=== PATIENT | male | born 1950 | race Caucasian/White ===

== ENCOUNTER 2017-06-03 09:29 | Inpatient (IN) | payer MEDICARE ==
[~2017-06-03] VITALS: Ht 175.3 cm; Wt 93.4 kg
[~2017-06-03 09:29] MED LIST: ALPR0.5T99 PO; CELE20TA PO; COZA100T PO; ENOX30P SQ; HYDR-2768 PO; HYDR10TA16 PO; LAMO25TA PO; MOME17I; PRAV40TA2 PO; TEMA7.5C9 PO
[2017-06-03 09:37] VITALS: BP 103/64; PULSE 79; RESP 19; TEMP 98; O2SAT 95
[2017-06-03] MEDS ORDERED: LEXA20TA PO (09:50)
--- NOTE | 2017-06-03 10:05 | PD ---
HPI Chief Complaint: Psychiatric Symptoms Time Seen by Provider: 10:03 Travel History International Travel<30 days: No Contact w/Intl Traveler<30days: No Traveled to known affect area: No History of Present Illness HPI 66-year-old male with history of bipolar disorder, presents to the ER brought in by EMS because he states that he was having an anxiety attack from increased amounts of stress. He states that he has been very hyperactive in the last few days and just cannot get himself to calm down. He apparently was fairly agitated on scene and had required several doses of Ativan in order to calm down. Currently in the ER, he is awake and aware of his surroundings, more calm and able to speak in complete sentences. He denies any homicidal or suicidal ideation. He has been Gonzalez acted for psychosis by EMS. He denies any ingestions or illicit drug use. Modifying Factors: None Associated Signs & Symptoms: Anxiety attack Risk Factors: Bipolar PFSH Past Medical History Bipolar Disorder: Yes Cancer: No Cardiovascular Problems: No Diabetes: Yes Patient Takes Glucophage: Yes Diminished Hearing: No Endocrine: No Genitourinary: No Hepatitis: No Hiatal Hernia: No Hypertension: Yes Immune Disorder: No Musculoskeletal: Yes Neurologic: No Psychiatric: Yes (BIPOLAR) Reproductive: No Respiratory: No Immunizations Current: Yes (FLU SHOT PNEUMONIA SHOT-2007) Thyroid Disease: No Past Surgical History Joint Replacement: Yes (RIGHT SHOULDER) Oral Surgery: Yes (PARTIAL PALET REMOVED) Pacemaker: No Other Surgery: Yes (CYST REMOVED FROM BACK OF NECK) Social History Alcohol Use: Yes (1/MONTH) Tobacco Use: No Substance Use: No Allergies-Medications (Allergen,Severity, Reaction): Coded Allergies: [place] (Verified Allergy, Severe, 06/03/17) Cultivated Oat Pollen (Verified Allergy, Intermediate, 02/14/13) Reported Meds & Prescriptions Reported Meds & Active Scripts Active Reported Lexapro (Escitalopram Oxalate) 20 Mg Tab 40 Mg PO DAILY Review of Systems Except as stated in HPI: all other systems reviewed are Neg Physical Exam Narrative GENERAL: Well-developed elderly white male patient currently in mild distress. Awake and oriented 3.] SKIN: Focused skin assessment warm/dry. HEAD: Atraumatic. Normocephalic. EYES: Pupils equal and round. No scleral icterus. No injection or drainage. ENT: No nasal bleeding or discharge. Mucous membranes pink and moist. NECK: Trachea midline. No JVD. CARDIOVASCULAR: Regular rate and rhythm. No murmur appreciated. RESPIRATORY: No accessory muscle use. Clear to auscultation. Breath sounds equal bilaterally. GASTROINTESTINAL: Abdomen soft, non-tender, nondistended. Hepatic and splenic margins not palpable. MUSCULOSKELETAL: No obvious deformities. No clubbing. No cyanosis. No edema. NEUROLOGICAL: Awake and alert. No obvious cranial nerve deficits. Motor grossly within normal limits. Normal speech. PSYCHIATRIC: Appropriate mood and affect; insight and judgment normal. Data Data Last Documented VS Vital Signs Date Time Temp Pulse Resp B/P Pulse Ox O2 Delivery O2 Flow Rate FiO2 06/03/17 09:37 98.0 79 19 103/64 95 Orders Complete Blood Count With Diff (06/03/17 09:48) Comprehensive Metabolic Panel (06/03/17 09:48) Psych Screen (06/03/17 09:48) Drug Screen, Random Urine (06/03/17 09:48) Alcohol (Ethanol) (06/03/17 09:48) Labs Laboratory Tests Test 06/03/17 10:00 White Blood Count 7.4 TH/MM3 Red Blood Count 5.50 MIL/MM3 Hemoglobin 15.7 GM/DL Hematocrit 46.4 % Mean Corpuscular Volume 84.4 FL Mean Corpuscular Hemoglobin 28.6 PG Mean Corpuscular Hemoglobin 33.9 % Concent Red Cell Distribution Width 13.5 % Platelet Count 229 TH/MM3 Mean Platelet Volume 8.0 FL Neutrophils (%) (Auto) 71.6 % Lymphocytes (%) (Auto) 20.3 % Monocytes (%) (Auto) 6.8 % Eosinophils (%) (Auto) 0.8 % Basophils (%) (Auto) 0.5 % Neutrophils # (Auto) 5.3 TH/MM3 Lymphocytes # (Auto) 1.5 TH/MM3 Monocytes # (Auto) 0.5 TH/MM3 Eosinophils # (Auto) 0.1 TH/MM3 Basophils # (Auto) 0.0 TH/MM3 CBC Comment DIFF FINAL Differential Comment Sodium Level 139 MEQ/L Potassium Level 3.6 MEQ/L Chloride Level 105 MEQ/L Carbon Dioxide Level 18.2 MEQ/L Anion Gap 16 MEQ/L Blood Urea Nitrogen 28 MG/DL Creatinine 1.58 MG/DL Estimat Glomerular Filtration 44 ML/MIN Rate Random Glucose 129 MG/DL Calcium Level 9.6 MG/DL Total Bilirubin 0.6 MG/DL Aspartate Amino Transf 30 U/L (AST/SGOT) Alanine Aminotransferase 46 U/L (ALT/SGPT) Alkaline Phosphatase 47 U/L Total Protein 7.6 GM/DL Albumin 3.9 GM/DL Ethyl Alcohol Level LESS THAN 3 MG/DL MDM Medical Decision Making Medical Screen Exam Complete: Yes Emergency Medical Condition: Yes Medical Record Reviewed: Yes Differential Diagnosis Psychosis/Gonzalez act/medical clearance Narrative Course Lab work shows elevated BUN and creatinine but vital signs are otherwise stable. At this point, I do not think that this is an acute issue and is not likely to be causing patient's psychosis currently. Patient will be medically cleared for psychiatric evaluation. Diagnosis Primary Impression: Psychosis Disposition: 65 DISC TO PSYCH CARE FACILITY Condition: Stable Sukhdev London MD Jun 03, 2017 10:05
[2017-06-03 10:10] LABS: AUTOMATED NEUTROPHIL # 5.3 TH/MM3 (1.8-7.7); BASOPHIL % 0.5 % (0.0-2.0); EOSINOPHIL # 0.1 TH/MM3 (0-0.4); EOSINOPHIL % 0.8 % (0.0-4.0); HEMATOCRIT 46.4 % (39.0-51.0); HEMO FLAGS DIFF FINAL; LYMPH % 20.3 % (9.0-44.0); LYMPHOCYTE # 1.5 TH/MM3 (1.0-4.8); MEAN CELL VOLUME 84.4 FL (80.0-100.0); MEAN CORPUSCULAR HEMOGLOBIN 28.6 PG (27.0-34.0); MEAN CORPUSCULAR HGB CONC 33.9 % (32.0-36.0); MONO % 6.8 % (0.0-8.0); NEUT % 71.6 % (16.0-70.0); PLATELET COUNT 229 TH/MM3 (150-450); RED CELL DISTRIBUTION WIDTH 13.5 % (11.6-17.2); WHITE BLOOD COUNT 7.4 TH/MM3 (4.0-11.0)
[2017-06-03 10:28] LABS: ANION GAP 16 MEQ/L (5-15); AST (GOT) 30 U/L (15-37); BICARBONATE 18.2 MEQ/L (21.0-32.0); BLOOD UREA NITROGEN 28 MG/DL (7-18); CHLORIDE 105 MEQ/L (98-107); GLOMERULAR FILTRATION RATE 44 ML/MIN (>89); POTASSIUM 3.6 MEQ/L (3.5-5.1); SODIUM (NA) 139 MEQ/L (136-145)
[2017-06-03 10:29] LABS: ALCOHOL LESS THAN 3 MG/DL (0-5); ALT (GPT) 46 U/L (12-78)
[2017-06-03 10:30] LABS: ALKALINE PHOSPHATASE 47 U/L (45-117); TOTAL BILIRUBIN ADULT 0.6 MG/DL (0.2-1.0)
[2017-06-03] MEDS ORDERED: SODIUM CHLOR 0.9% 1000 ML INJ 1,000 ML IV ONE (10:45)
[2017-06-03] MEDS ORDERED: VESI10TA PO (11:39)
[2017-06-03] MEDS ORDERED: SPIR25 PO (11:39)
[2017-06-03] MEDS ORDERED: LOSA100T2 PO (11:39)
[2017-06-03] MEDS ORDERED: TAMS0.4C4 PO (11:39)
[2017-06-03] MEDS ORDERED: PRAV40TA2 PO (11:39)
[2017-06-03] MEDS ORDERED: SONA10CA5 PO (11:39)
[2017-06-03] MEDS ORDERED: DIAZ5TAB PO (11:39)
[2017-06-03] MEDS ORDERED: ESCI10TA PO (11:39)
[2017-06-03] MEDS ORDERED: DULA10IN SQ (11:39)
[2017-06-03] MEDS ORDERED: AMBI10TA PO (11:39)
[2017-06-03 12:30] VITALS: BP 106/66; PULSE 57; RESP 15; O2SAT 98
[2017-06-03 16:40] VITALS: BP 123/73; PULSE 77; RESP 18; TEMP 97.5; O2SAT 97
[2017-06-03 22:20] VITALS: BP 121/69; PULSE 64; RESP 16
[2017-06-04 05:55] VITALS: BP 159/80; PULSE 71; RESP 18
[2017-06-04 10:00] VITALS: BP 119/70; PULSE 97; RESP 18
--- NOTE | 2017-06-04 10:00 | PD ---
History of Present Illness Chief Complaint: Psychiatric Symptoms Time Seen by Provider: 09:20 Travel History International Travel<30 Days: No Contact w/Intl Traveler<30days: No Known affected area: No Legal Status Legal Status: Gonzalez Act Gonzalez Act Signed By: Mert Martinez History of Present Illness: History of Present Illness HPI 66-year-old male with history of bipolar disorder and anxiety who presents to the ER brought in by EMS under a Gonzalez Act. The BA alleges that the patient made several suicdal statements and that he was combative during a "psychotic episode". EMS were called to the patient's home by his mother after " he started to mumble and flail around on the floor and started to hit his head" . Earlier in the day he had seen his psychologist , Dr. Stanford who had recommended that the patient see another psychiatrist instead of seeing Dr. Anderson but failed to give him a referral. He required 6 mg of Ativan en route to hospital secondary to his agitated state. He reported to ED provider that he has been feeling "very hyperactive in the last few days and just cannot get himself to calm down.". Patient was monitored in J pod and he presented no agitation. EMR is reviewed. One previous contact with [facility] [place] department in 2009 when he presented to the ED with complaints of anxiety. Patient is seen with nurse Maria Luisa. He is awake, alert and oriented. Flat affect. Speech is delayed. When he does answer he is tangential with difficulty focusing and concentration. He reports that he is having trouble with his thoughts " too many thoughts and off track" . He denies hallucinations. Denies suicidal or homicidal ideation. Mood is depressed. Reports impaired sleep with current medications which include Sonata and Ambien . 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 Telephone call to his mother, Carmen Meyer at [phone]. Mother reports that as far as she is aware he has been medication compliant and did not present any concerns regarding the patient. . PFSH Past Medical History Bipolar Disorder: Yes Cancer: No Cardiovascular Problems: No Diabetes: Yes Patient Takes Glucophage: Yes Diminished Hearing: No Endocrine: No Genitourinary: No Hepatitis: No Hiatal Hernia: No Hypertension: Yes Immune Disorder: No Musculoskeletal: Yes Neurologic: No Psychiatric: Yes (BIPOLAR) Reproductive: No Respiratory: No Immunizations Current: Yes (FLU SHOT PNEUMONIA SHOT-2008) Thyroid Disease: No Past Surgical History Joint Replacement: Yes (RIGHT SHOULDER) Oral Surgery: Yes (PARTIAL PALET REMOVED) Pacemaker: No Other Surgery: Yes (CYST REMOVED FROM BACK OF NECK) Psychiatric History Psychiatric History Hx Psychiatric Treatment: PATIENT OF DR. TIPTON x 1 year[address] Had previously seen Dr. Weeks. Has been on Niarada in the past. PATIENT OF DR. LUNDBERG , PSYCHOLOGIST History of Inpatient Treatment: Yes (One hosp in [place] in 1992. Has a another reported hosp but patietn unable to provide other information. ) Guns or firearms in home: No Social History Single , never . Lives with his mother. Born [place]. 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 Hx Alcohol Use: Yes (1/MONTH) Hx Tobacco Use: No Hx Substance Use: No Hx of Substance Use Treatment: No Family Psychiatric History Negative Allergies-Medications (Allergen,Severity, Reaction): Coded Allergies: [place] (Verified Allergy, Severe, 06/03/17) Cultivated Oat Pollen (Verified Allergy, Intermediate, 02/14/13) Reported Meds & Prescriptions Reported Meds & Active Scripts Active Reported Ambien (Zolpidem Tartrate) 10 Mg Tab 10 Mg PO HS PRN Sonata (Zaleplon) 10 Mg Cap 10 Mg PO HS PRN Vesicare (Solifenacin) 10 Mg Tab 10 Mg PO HS Trulicity Inj (Dulaglutide Inj) 0.75 Mg/0.5 Ml Pen 0.75 Mg SQ Q7D Tamsulosin (Tamsulosin HCl) 0.4 Mg Cap 0.4 Mg PO HS Aldactone (Spironolactone) 25 Mg Tab 25 Mg PO DAILY Pravastatin 40 Mg Tab 40 Mg PO HS PRN Losartan-Hydrochlorothiazide 100-25 Mg Tab 1 Tab PO DAILY Escitalopram (Escitalopram Oxalate) 10 Mg Tab 10 Mg PO DAILY Diazepam 5 Mg Tab 5 Mg PO BID PRN Lexapro (Escitalopram Oxalate) 20 Mg Tab 40 Mg PO DAILY Review of Systems Except as stated in HPI: all other systems reviewed are Neg Exam Alert: Yes [place]: Person (ox4) Mood: Depressed Affect: Blunted Speech: Clear, Tangential (Delayed repsonses) Eye Contact: Fixed Memory Intact: Comment (Not tested) Hallucinations: Other (deneis any) Delusions: No Suicidal: Ideation (deneis any) Homicidal: Ideation (deneis any) Insight/Judgement Fair. Not impaired MDM Medical Decision Making Medical Record Reviewed: Yes Assessment/Plan HPI 66-year-old male with history of bipolar disorder and anxiety who presents to the ER brought in by EMS under a Gonzalez Act. The BA alleges that the patient made several suicdal statements and that he was combative during a "psychotic episode". As per report he was hitting himself and flailing on the floor when EMS was called. The patient required 6 mg of Ativan to control his agitation. This morning the patient presents as depressed with blunted affect, delayed responses, difficulty organizing his thoughts, impaired sleep, and reporting inability to function at work. Patient is accepting a voluntary hospitalization for further observation, adjustment of medications and stabilization of mood. Orders Sodium Chlor 0.9% 1000 Ml Inj (Ns 1000 M (06/03/17 10:45) Diet Regular Basic (06/04/17 Breakfast) Results Vital Signs Date Time Temp Pulse Resp B/P Pulse Ox O2 Delivery O2 Flow Rate FiO2 06/04/17 05:55 71 18 159/80 06/03/17 22:20 64 16 121/69 06/03/17 16:40 97.5 77 18 123/73 97 Room Air 06/03/17 12:30 57 15 106/66 98 Room Air Laboratory Tests Test 06/03/17 06/03/17 10:00 16:50 White Blood Count 7.4 Red Blood Count 5.50 Hemoglobin 15.7 Hematocrit 46.4 Mean Corpuscular Volume 84.4 Mean Corpuscular Hemoglobin 28.6 Mean Corpuscular Hemoglobin 33.9 Concent Red Cell Distribution Width 13.5 Platelet Count 229 Mean Platelet Volume 8.0 Neutrophils (%) (Auto) 71.6 Lymphocytes (%) (Auto) 20.3 Monocytes (%) (Auto) 6.8 Eosinophils (%) (Auto) 0.8 Basophils (%) (Auto) 0.5 Neutrophils # (Auto) 5.3 Lymphocytes # (Auto) 1.5 Monocytes # (Auto) 0.5 Eosinophils # (Auto) 0.1 Basophils # (Auto) 0.0 CBC Comment DIFF FINAL Differential Comment Sodium Level 139 Potassium Level 3.6 Chloride Level 105 Carbon Dioxide Level 18.2 Anion Gap 16 Blood Urea Nitrogen 28 Creatinine 1.58 Estimat Glomerular Filtration 44 Rate Random Glucose 129 Calcium Level 9.6 Total Bilirubin 0.6 Aspartate Amino Transf 30 (AST/SGOT) Alanine Aminotransferase 46 (ALT/SGPT) Alkaline Phosphatase 47 Total Protein 7.6 Albumin 3.9 Ethyl Alcohol Level LESS THAN 3 Urine Opiates Screen NEG Urine Barbiturates Screen NEG Urine Amphetamines Screen NEG Urine Benzodiazepines Screen POS Urine Cocaine Screen NEG Urine Cannabinoids Screen NEG Diagnosis Primary Impression: Bipolar disorder Admitting Information Admitting Physician Requests: Admit Disposition: 65 DISC TO PSYCH CARE FACILITY Condition: Stable Problem Qualifiers Primary Impression: Bipolar disorder Qualified Code: F31.32 - Bipolar affective disorder, currently depressed, moderate Kathryn Cortez Jun 04, 2017 10:00
[2017-06-04] MEDS ORDERED: ACETAMINOPHEN 325 MG TAB PO PRN (11:00)
[2017-06-04] MEDS ORDERED: NON-FORMULARY DRUG (Dulaglutide Inj (Trulicity Inj) 0.75 MG) SQ SCH (11:00)
[2017-06-04] MEDS ORDERED: ALUMINUM/MAGNESIUM/SIMETH 30 ML CUP PO PRN (11:00)
[2017-06-04] MEDS ORDERED: PRAVASTATIN SOD 40 MG TAB PO PRN (11:00)
[2017-06-04] MEDS ORDERED: MAGNESIUM HYDROXIDE SUSP 30 ML CUP PO PRN (11:00)
[2017-06-04] MEDS ORDERED: NON-FORMULARY DRUG (Losartan-Hydrochlorothiazide 1 TAB) PO SCH (11:00)
[2017-06-04] MEDS: SPIRONOLACTONE 25 MG TAB PO SCH (14:30)
[2017-06-04] MEDS: LOSARTAN 50 MG TAB PO SCH (14:30)
[2017-06-04] MEDS: HYDROCHLOROTHIAZIDE 25 MG TAB PO SCH (14:31)
[2017-06-04 17:33] VITALS: BP 141/87; PULSE 80; RESP 18; TEMP 97.9
[2017-06-04] MEDS ORDERED: NON-FORMULARY DRUG (Solifenacin (Vesicare) 10 MG) PO SCH (21:00)
[2017-06-04] MEDS: TAMSULOSIN HCL 0.4 MG CAP PO SCH (21:23)
[2017-06-04] MEDS: TOLTERODINE TARTRATE 4 MG CAP LA PO SCH (21:23)
[2017-06-05 06:19] VITALS: BP 130/76; PULSE 82; RESP 18; TEMP 97.1; O2SAT 97
[2017-06-05] MEDS: HYDROCHLOROTHIAZIDE 25 MG TAB PO SCH (08:25)
[2017-06-05] MEDS: SPIRONOLACTONE 25 MG TAB PO SCH (08:26)
[2017-06-05] MEDS: LOSARTAN 50 MG TAB PO SCH (08:26)
[2017-06-05 12:18] LABS: ANION GAP 8 MEQ/L (5-15); BLOOD UREA NITROGEN 22 MG/DL (7-18); CHLORIDE 102 MEQ/L (98-107); GLOMERULAR FILTRATION RATE 76 ML/MIN (>89); POTASSIUM 3.7 MEQ/L (3.5-5.1); SODIUM (NA) 138 MEQ/L (136-145)
[2017-06-05 12:22] LABS: HDL CHOLESTEROL 36.5 MG/DL (40.0-60.0); LDL CHOLESTEROL 80 MG/DL (0-99)
[2017-06-05] MEDS ORDERED: PT TRULICITY SQ SCH (15:00)
--- NOTE | 2017-06-05 15:03 | HHI.HP ---
Provisional Diagnosis Admission Date Jun 04, 2017 at 10:48 [place] I. Bipolar disorder, depressed episode, benzodiazepine dependence [place] II. Deferred [place] III. Diabetes mellitus II Certification of Person's Competence To Provide Express and Informed Consent I have personally examined Jorje Meyer , a person being served at [facility] on, Jun 05, 2017 14:44. Express and informed consent means consent voluntarily given in writing, by a competent person, after sufficient explanation and disclosure of the subject matter involved to enable the person to make a knowing and willful decision without any element of force, fraud, deceit, duress, or other form of constraint or coercion. This person is 18 years of age or older, is not now known to be incompetent to consent to treatment with a guardian advocate, and does not have a health care surrogate or proxy currently making medical treatment decisions. I have found this person to be one of the following: [X] Competent to provide express and informed consent, as defined above, for voluntary admission to this facility and is competent to provide express and informed consent for treatment. He/she has the consistent capacity to make well reasoned, willful, and knowing decisions concerning his or her medical or mental health treatment. The person fully and consistently understands the purpose of the admission for examination/placement and is fully capable of personally exercising all rights assured under [place] Incompetent to provide express and informed consent to voluntary admission, and this is incompetent to provide express and informed consent to treatment. The person must be transferred to involuntary status and a petition for a guardian advocate filed with the Circuit Court. [] Refusing to provide express and informed consent to voluntary admission but is competent to provide express and informed consent for treatment. The person must be discharged or transferred to involuntary status. Form shall be completed within 24 hours of a person's arrival at the receiving facility and filed in the clinical record of each person: 1. Admitted on a voluntary basis 2. Permitted to provide express and informed consent to his/her own treatment 3. Allowed to transfer from involuntary to voluntary status 4. Prior to permitting a person to consent to his or her own treatment after having been previously found incompetent to consent to treatment. History of Present Illness Capacity: Has Capacity HPI As per Ms. Kathryn Cortez documentation "66-year-old male with history of bipolar disorder and anxiety who presents to the ER brought in by EMS under a Gonzalez Act. The BA alleges that the patient made several suicidal statements and that he was combative during a "psychotic episode". EMS were called to the patient's home by his mother after " he started to mumble and flail around on the floor and started to hit his head" . Earlier in the day he had seen his psychologist , Dr. Stanford who had recommended that the patient see another psychiatrist instead of seeing Dr. Anderson but failed to give him a referral. He required 6 mg of Ativan en route to hospital secondary to his agitated state. He reported to ED provider that he has been feeling "very hyperactive in the last few days and just cannot get himself to calm down.". Patient was monitored in J pod and he presented no agitation. EMR is reviewed. [place] [facility] [place] 2009 when he presented to the ED with complaints of anxiety. Patient is seen with nurse Maria Luisa. He is awake, alert and oriented. Flat affect. Speech is delayed. When he does answer he is tangential with difficulty focusing and concentration. He reports that he is having trouble with his thoughts " too many thoughts and off track" . He denies hallucinations. Denies suicidal or homicidal ideation. Mood is depressed. Reports impaired sleep with current medications which include Sonata and Ambien . 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 Telephone call to his mother, Carmen Meyer at [phone]. 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 Motta, he also sees a psychologist for psychotherapy, he is on Lamictal 150 mg twice a day, Lexapro 10 mg, Sonata 10 mg, Ambien 5 mg, Valium 5 mg twice a day, medical history of diabetes mellitus type 2, who was brought to the hospital under Gonzalez act due to suicidal ideation and disorganized behavior. Patient is seen today for psychiatric evaluation in the 2600 unit with social services counselor Aurelia. Patient is calm and cooperative. Patient explains that he cannot fully understand the reason he in the hospital. Says that he doesn't usually acts like this, but apparently he has been having some disputes and disagreement with his psychologist regarding his medication management by Dr. Julian. Patient says that he admits that he has been abusing benzodiazepines and he is willing to participate in a medication adjustment. The moment of this evaluation patient denies prominent depressive symptoms, he reports decreased sleep and energy, but denies anhedonia, denies hopelessness, denies helplessness, denies worthlessness, denies suicidal or homicidal ideation, denies visual and auditory hallucinations. She does not seem to have an insight about his episode of psychosis and aggressive behavior in the unit. At this moment he is oriented 3, no attention deficit, no fluctuation of consciousness. Patient denies the use of drugs and alcohol. Review of Systems Constitutional: DENIES: Diaphoretic episodes, Fatigue, Fever, Weight gain, Weight loss, Chills, Dizziness, Change in appetite, Night Sweats Endocrine: DENIES: Heat/cold intolerance, Polydipsia, Polyuria, Polyphagia Eyes: DENIES: Blurred vision, Diplopia, Eye inflammation, Eye pain, Vision loss , Photosensitivity, Double Vision Ears, nose, mouth, throat: DENIES: Tinnitus, Hearing loss, Vertigo, Nasal discharge, Oral lesions, Throat pain, Hoarseness, Ear Pain, Running Nose, Epistaxis, Sinus Pain, Toothache, Odynophagia Respiratory: DENIES: Apneas, Cough, Snoring, Wheezing, Hemoptysis, Sputum production, Shortness of breath Cardiovascular: DENIES: Chest pain, Palpitations, Syncope, Dyspnea on Exertion , PND, Lower Extremity Edema, Orthopnea, Claudication Gastrointestinal: DENIES: Abdominal pain, Black stools, Bloody stools, Constipation, Diarrhea, Nausea, Vomiting, Difficulty Swallowing, Anorexia Musculoskeletal: DENIES: Joint pain, Muscle aches, Stiffness, Joint Swelling, Back pain, Neck pain Integumentary: DENIES: Abnormal pigmentation, Nail changes, Pruritus, Rash Hematologic/lymphatic: DENIES: Bruising, Lymphadenopathy Immunologic/allergic: DENIES: Eczema, Urticaria Neurologic: DENIES: Abnormal gait, Headache, Localized weakness, Paresthesias, Seizures, Speech Problems, Tremor, Poor Balance Psychiatric: DENIES: Anxiety, Confusion, Mood changes, Depression, Hallucinations, Agitation, Suicidal Ideation, Homicidal Ideation, Delusions Substance Abuse History Drugs/Alcohol past 12 months Patient denies the use of illicit drugs and alcohol Past Family Social History Coded Allergies: [place] (Verified Allergy, Severe, 06/03/17) Cultivated Oat Pollen (Verified Allergy, Intermediate, 02/14/13) Reported Medications Zolpidem (Ambien)10 Mg Tab10 Mg PO HS PRN (INSOMNIA) Ref 0 06/03/17 Zaleplon (Sonata)10 Mg Cap10 Mg PO HS PRN (INSOMNIA) Ref 0 06/03/17 Solifenacin (Vesicare)10 Mg Tab10 Mg PO HS #30 TAB Ref 0 06/03/17 Dulaglutide Inj (Trulicity Inj)0.75 Mg/0.5 Ml Pen0.75 Mg SQ Q7D #4 PEN Ref 0 06/03/17 Tamsulosin 0.4 Mg Cap0.4 Mg PO HS #30 CAP Ref 0 06/03/17 Spironolactone (Aldactone)25 Mg Tab25 Mg PO DAILY #30 TAB Ref 0 06/03/17 Pravastatin 40 Mg Tab40 Mg PO HS PRN (Cholesterol Management) #30 TAB Ref 0 06/03/17 Losartan-Hydrochlorothiazide 100-25 Mg Tab1 Tab PO DAILY #30 TAB Ref 0 06/03/17 Escitalopram 10 Mg Tab10 Mg PO DAILY #30 TAB Ref 0 06/03/17 Diazepam 5 Mg Tab5 Mg PO BID PRN (ANXIETY) Ref 0 06/03/17 Escitalopram (Lexapro)20 Mg Tab40 Mg PO DAILY #30 TAB Ref 0 06/03/17 Discontinued Reported Medications Enoxaparin Sodium (Lovenox)30 Mg/0.3 Ml Inj30 Mg SQ DAILY #6 UNGRADUATED PREFILLED SYRINGE 02/16/13 Hydrocodone-Acetaminophen (Lortab 10/500)10 Mg/500 Mg Tab1-2 Tab PO Q6HPRN #90 FOR PAIN 02/16/13 Lamotrigine 25 Mg Ajg100 Mg PO HS 02/02/13 Pravastatin Sodium 40 Mg Tab40 Mg PO HS 02/02/13 Hydrochlorothiazide (Hctz)25 Mg Tab25 Mg PO DAILY 02/02/13 Losartan Potassium (Cozaar)100 Mg [id number] Mg PO DAILY 02/02/13 Citalopram Hydrobromide (Celexa)20 Mg Tab40 Mg PO DAILY 03/03/10 Mometasone Furoate (Nasonex)17 Gm Spray1 Spr NA DAILYPRN Ref 0 03/03/10 Temazepam (Restoril)7.5 Mg Cap30 Mg PO HSPRN Ref 0 UNKNOWN DOSE 03/03/10 Alprazolam (Xanax)0.5 Mg Tab0.5 Mg PO BID Ref 0 03/03/10 Current Medications Medications (Trade) Dose Ordered Sig/Jorge Route Start Time Stop Time Status Last Admin (Tylenol) 650 mg Q4H PRN PO 06/04/17 11:00 (Milk Of Magnesia Liq) 30 ml DAILY PRN PO 06/04/17 11:00 (Mag-Al Plus Susp Liq) 30 ml Q6H PRN PO 06/04/17 11:00 (Pravachol) 40 mg HS PRN PO 06/04/17 11:00 (Aldactone) 25 mg DAILY PO 06/04/17 12:30 06/05/17 08:26 (Flomax) 0.4 mg HS PO 06/04/17 21:00 06/04/17 21:23 Non-Formulary Medication 0.75 mg Q7D SQ 06/04/17 11:00 UNV (Detrol La) 4 mg HS PO 06/04/17 21:00 06/04/17 21:23 (Cozaar) 100 mg DAILY PO 06/04/17 13:00 06/05/17 08:26 (Hydrodiuril) 25 mg DAILY PO 06/04/17 13:00 06/05/17 08:25 Family History Patient denies family psychiatric history Social History Patient was born and raised in [place], he lives in [place] his mother , he is single, he works as a 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 Physical Exam No tremors, no EPS, no withdrawal, no stiffness, no psychomotor agitation or retardation, no gait disturbance Vital Signs Vital Signs Date Time Temp Pulse Resp B/P Pulse Ox O2 Delivery O2 Flow Rate FiO2 06/05/17 06:19 97.1 82 18 130/76 97 06/04/17 10:00 Room Air Lab Results Laboratory Tests Test 06/03/17 06/03/17 10:00 16:50 White Blood Count 7.4 Red Blood Count 5.50 Hemoglobin 15.7 Hematocrit 46.4 Mean Corpuscular Volume 84.4 Mean Corpuscular Hemoglobin 28.6 Mean Corpuscular Hemoglobin 33.9 Concent Red Cell Distribution Width 13.5 Platelet Count 229 Mean Platelet Volume 8.0 Neutrophils (%) (Auto) 71.6 Lymphocytes (%) (Auto) 20.3 Monocytes (%) (Auto) 6.8 Eosinophils (%) (Auto) 0.8 Basophils (%) (Auto) 0.5 Neutrophils # (Auto) 5.3 Lymphocytes # (Auto) 1.5 Monocytes # (Auto) 0.5 Eosinophils # (Auto) 0.1 Basophils # (Auto) 0.0 CBC Comment DIFF FINAL Differential Comment Sodium Level 139 Potassium Level 3.6 Chloride Level 105 Carbon Dioxide Level 18.2 Anion Gap 16 Blood Urea Nitrogen 28 Creatinine 1.58 Estimat Glomerular Filtration 44 Rate Random Glucose 129 Calcium Level 9.6 Total Bilirubin 0.6 Aspartate Amino Transf 30 (AST/SGOT) Alanine Aminotransferase 46 (ALT/SGPT) Alkaline Phosphatase 47 Total Protein 7.6 Albumin 3.9 Ethyl Alcohol Level LESS THAN 3 Urine Opiates Screen NEG Urine Barbiturates Screen NEG Urine Amphetamines Screen NEG Urine Benzodiazepines Screen POS Urine Cocaine Screen NEG Urine Cannabinoids Screen NEG Mental Status Examination Appearance man, age appearing, good hygiene, he is calm and cooperative Speech: Unremarkable Orientation: x3 Memory: Unremarkable Thought Process: Logical Thought Content: Unremarkable Language Fluent and spontaneous Fund of Knowledge Adequate for his level of education Hallucination Type: None Suicidal Ideation: No Previous Suicide Attempts: No Homicidal Ideation: No Insight: Good Judgment: WNL Affect: Good Mood: Appropriate Motor Activity: Normal gait Assessment & Plan Problem List: (1) Bipolar disorder Assessment & Plan: Psychiatric evaluation today the patient is calm, cooperative and pleasant. Does reports mild to moderate symptomatology of depression and anxiety in the context of poor medication management. Patient has been reportedly aggressive and acting psychotic in the last hours, especially in the ER, but at this moment is unclear the etiology of these described symptoms. Patient seems to be interested in reducing his benzodiazepine use. He does not seem to be withdrawing of benzodiazepines at the moment of this evaluation, no tremors, no anxiety, no autonomic instability reported. We will keep the patient for psychiatric admission in voluntary basis for observation of mood and behavior. We will restart Lamictal 100 mg twice a day, escitalopram 10 mg. We'll start clonazepam 0.5 mg 3 times a day for anxiety. Discontinue Ambien and Sonata. Collateral information from Dr. Motta is crucial in order to help with medication for stabilization. garbage worker intervention for psychosocial assessment, individual and group counseling , collateral information and to coordinate a safe discharge. Extensive support , motivation and psychoeducation provided. ICD Code: F31.9 Assessment & Plan Estimated LOS: days Problem Qualifiers (1) Bipolar disorder: Qualified Code: F31.32 - Bipolar affective disorder, currently depressed, moderate Lucian Palumbo MD Jun 05, 2017 15:03
[2017-06-05] MEDS: lamoTRIgine 100 MG TAB PO SCH ×2 (15:53→21:46)
[2017-06-05] MEDS: clonazePAM 0.5 MG TAB PO SCH ×2 (15:53→21:46)
[2017-06-05] MEDS: ESCITALOPRAM OXALATE 10 MG TAB PO SCH (15:53)
[2017-06-05 18:23] VITALS: BP 120/69; PULSE 89; RESP 18; TEMP 98.1; O2SAT 96
[2017-06-05] MEDS: TOLTERODINE TARTRATE 4 MG CAP LA PO SCH (21:45)
[2017-06-05] MEDS: TAMSULOSIN HCL 0.4 MG CAP PO SCH (21:46)
[2017-06-06] MEDS: clonazePAM 0.5 MG TAB PO SCH ×3 (05:22→21:44)
[2017-06-06 06:00] VITALS: BP 116/78; PULSE 76; RESP 16; TEMP 97.4; O2SAT 97
[2017-06-06] MEDS: LOSARTAN 50 MG TAB PO SCH (09:17)
[2017-06-06] MEDS: ESCITALOPRAM OXALATE 10 MG TAB PO SCH (09:17)
[2017-06-06] MEDS: SPIRONOLACTONE 25 MG TAB PO SCH (09:17)
[2017-06-06] MEDS: HYDROCHLOROTHIAZIDE 25 MG TAB PO SCH (09:17)
[2017-06-06] MEDS: lamoTRIgine 100 MG TAB PO SCH ×2 (09:18→21:44)
--- NOTE | 2017-06-06 12:12 | HHI.PYPN ---
Subjective Remarks Patient discussed with treatment team, patient seen and unit, chart reviewed, patient compliant medications. Patient showing some improved affect she is calm cooperative sitting in dayroom with good eye contact able to focus on me she is excited about possible placement still. For now continue treatment she denies suicidality voices or visions Review of Systems Except as stated in HPI: all other systems reviewed are Neg Objective Alert: Yes [place]: Person (ox4) Mood: Depressed Affect: Blunted Memory Intact: Comment (Not tested) Hallucinations: Other (deneis any) Delusions: No Delusion Type: Other (denies at this time) Suicidal: Ideation (deneis any) Homicidal: Ideation (deneis any) Insight/Judgment Poor Vitals/IOs Vital Signs Date Time Temp Pulse Resp B/P Pulse Ox O2 Delivery O2 Flow Rate FiO2 06/06/17 06:00 97.4 76 16 116/78 97 06/04/17 10:00 Room Air Intake and Output 06/05/17 06/05/17 06/06/17 08:00 16:00 00:00 Intake Total 240 ml Balance 240 ml Assessment & Plan Problem List: (1) Bipolar disorder ICD Code: F31.9 Assessment & Plan Estimated LOS: days patient mood is calming she is more appropriate focused, compliant medications. Excited about possible placement Justification for Cont. Inpt. If this time patient may decompensate if not placed at an appropriate level of care Discharge Planning To be determined Problem Qualifiers (1) Bipolar disorder: Qualified Code: F31.32 - Bipolar affective disorder, currently depressed, moderate Ben Powers MD Jun 06, 2017 12:12
--- NOTE | 2017-06-06 12:57 | PD.TTN ---
Present for Treatment Team Treatment Team Staff: Provider (Dr. Powers), Nurse (DES Padilla), Psych Therapist (IAN Andino), Occupational Therapist (MULU Menendez) Patient Problems 1. Discharge planning 2. Medication compliance 3. Knowledge deficit 4. Lack of coping skills Progress Toward Goals Provider Input: Patient is new on the unit and has some complaints about medication management. patient is cooperative with treatment and will continue his treatment voluntarily. Patient's complaints are his inability to sleep. Nurse Input: Patient has had no behavioral issues on the unit at the time, patient is cooperative with treatment and compliant with medications. Patient has good appetite. Psych Therapist Input: Patient has flat affect and needs constant reassurance with treatment. patient notes to be struggling with feelings of overwhelmingness and inability to cope with stress with taking care of his mother. Patient states that he has realistic goals and is willing to find new ways to cope upon discharge. Thu [place]agena Jun 06, 2017 12:57
--- NOTE | 2017-06-06 15:41 | HHI.PYPN ---
Subjective Remarks Patient discussed with treatment team, Patient seen in his room with DES Padilla. Patient states he is compliant with medications, as noted with the adjustments in the benzodiazepines that he is thinking clear is able to focus and concentrate on reading about going over sentences. Patient still remains depressed fairly flat affect. With the stimulus denies suicidality. For now continue treatment no change Review of Systems Except as stated in HPI: all other systems reviewed are Neg Objective Alert: Yes [place]: Person (ox4) Mood: Depressed Affect: Blunted Memory Intact: Comment (Not tested) Hallucinations: Other (deneis any) Delusions: No Delusion Type: Other (denies at this time) Suicidal: Ideation (deneis any) Homicidal: Ideation (deneis any) Insight/Judgment Poor Vitals/IOs Vital Signs Date Time Temp Pulse Resp B/P Pulse Ox O2 Delivery O2 Flow Rate FiO2 06/06/17 06:00 97.4 76 16 116/78 97 06/04/17 10:00 Room Air Intake and Output 06/05/17 06/05/17 06/06/17 08:00 16:00 00:00 Intake Total 240 ml Balance 240 ml Assessment & Plan Problem List: (1) Bipolar disorder ICD Code: F31.9 Assessment & Plan Estimated LOS: days patient remains depressed with a markedly decreased affect. Though he states he is feeling some difference with the adjustments in the benzodiazepines Justification for Cont. Inpt. At this time patient will decompensate if placed in the lower level of care Discharge Planning To be determined Problem Qualifiers (1) Bipolar disorder: Qualified Code: F31.32 - Bipolar affective disorder, currently depressed, moderate Ben Powers MD Jun 06, 2017 15:41
[2017-06-06 16:40] LABS: HEMOGLOBIN A1a 1.1 %; HEMOGLOBIN A1b 1.6 %; HEMOGLOBIN Ao 84.4 %; HEMOGLOBIN LA1C 2.2 %; HEMOGLOBIN P3 3.8 %
[2017-06-06 18:12] VITALS: BP 131/64; PULSE 77; RESP 16; TEMP 98; O2SAT 97
[2017-06-06] MEDS: TAMSULOSIN HCL 0.4 MG CAP PO SCH (21:44)
[2017-06-06] MEDS: TOLTERODINE TARTRATE 4 MG CAP LA PO SCH (21:45)
[2017-06-07 05:15] VITALS: BP 101/69; PULSE 63; RESP 16; TEMP 98.7; O2SAT 97
[2017-06-07] MEDS: clonazePAM 0.5 MG TAB PO SCH ×3 (05:22→22:07)
[2017-06-07] MEDS: HYDROCHLOROTHIAZIDE 25 MG TAB PO SCH (09:58)
[2017-06-07] MEDS: LOSARTAN 50 MG TAB PO SCH (09:58)
[2017-06-07] MEDS: SPIRONOLACTONE 25 MG TAB PO SCH (09:58)
[2017-06-07] MEDS: lamoTRIgine 100 MG TAB PO SCH ×2 (09:58→22:07)
[2017-06-07] MEDS: ESCITALOPRAM OXALATE 10 MG TAB PO SCH (09:58)
--- NOTE | 2017-06-07 11:57 | HHI.PYPN ---
Subjective Remarks Patient seen in his room with nurse Saira and medical student Arley, patient states she is feeling better, he is participating in activities and showing some slight increased focus. Though he still isolates at times. He denies suicidality denies voices. He continues to show some focus on his medications though is been compliant, showing no significant side effects from the transition to the Klonopin than the discontinuation of the Valium and the Xanax. We did talk about discharge. Patient states that he had a prior episode of hospitalization where his mother became quite upset because she was nonoccluded the discharge planning and transportation home. Reassured him that his mother will be part of the discharge planning and notification. For now continue treatment Review of Systems Except as stated in HPI: all other systems reviewed are Neg Objective Alert: Yes [place]: Person (ox4) Mood: Depressed Affect: Blunted Memory Intact: Comment (Not tested) Hallucinations: Other (deneis any) Delusions: No Delusion Type: Other (denies at this time) Suicidal: Ideation (deneis any) Homicidal: Ideation (deneis any) Insight/Judgment Poor Vitals/IOs Vital Signs Date Time Temp Pulse Resp B/P Pulse Ox O2 Delivery O2 Flow Rate FiO2 06/07/17 05:15 98.7 63 16 101/69 97 06/04/17 10:00 Room Air Assessment & Plan Problem List: (1) Bipolar disorder ICD Code: F31.9 Assessment & Plan Estimated LOS: days patient will continue somewhat depressed and blunted though there is slight softening. Now denies suicidality of voices. Is compliant with his medication Justification for Cont. Inpt. At this time patient may decompensate if not placed an appropriate level of care Discharge Planning To be determined Problem Qualifiers (1) Bipolar disorder: Qualified Code: F31.32 - Bipolar affective disorder, currently depressed, moderate Ben Powers MD Jun 07, 2017 11:57
[2017-06-07 15:13] VITALS: BP 105/67; PULSE 74; RESP 18; TEMP 98.3; O2SAT 96
[2017-06-07] MEDS: TAMSULOSIN HCL 0.4 MG CAP PO SCH (22:08)
[2017-06-07] MEDS: TOLTERODINE TARTRATE 4 MG CAP LA PO SCH (22:09)
[2017-06-08] MEDS: clonazePAM 0.5 MG TAB PO SCH ×3 (05:01→21:39)
[2017-06-08 05:06] VITALS: BP 106/66; PULSE 55; RESP 16; TEMP 97.4; O2SAT 97
[2017-06-08] MEDS: ESCITALOPRAM OXALATE 10 MG TAB PO SCH (09:00)
[2017-06-08] MEDS: lamoTRIgine 100 MG TAB PO SCH (09:00)
[2017-06-08] MEDS: HYDROCHLOROTHIAZIDE 25 MG TAB PO SCH (09:00)
[2017-06-08] MEDS: LOSARTAN 50 MG TAB PO SCH (09:00)
[2017-06-08] MEDS: SPIRONOLACTONE 25 MG TAB PO SCH (09:00)
--- NOTE | 2017-06-08 12:52 | HHI.PYPN ---
Subjective Remarks Patient seen in his room with nurse Aries and counselor antonio, chart reviewed. Patient states that he has been on Lamictal 150 mg twice a day and would like to have his medications adjusted. Will increase at bedtime Lamictal 2125 mg. Patient does have various other somatic complaints. He also stated they have been on metformin in the past. We will have hospitalist consult with us otherwise patient denies suicidality homicidality. Pierces mood is also stabilizing. We'll consider discharge by the end of the week Review of Systems Except as stated in HPI: all other systems reviewed are Neg Objective Alert: Yes [place]: Person (ox4) Mood: Depressed Affect: Blunted Memory Intact: Comment (Not tested) Hallucinations: Other (deneis any) Delusions: No Delusion Type: Other (denies at this time) Suicidal: Ideation (deneis any) Homicidal: Ideation (deneis any) Insight/Judgment Poor Vitals/IOs Vital Signs Date Time Temp Pulse Resp B/P Pulse Ox O2 Delivery O2 Flow Rate FiO2 06/08/17 05:06 97.4 55 16 106/66 97 06/04/17 10:00 Room Air Assessment & Plan Problem List: (1) Bipolar disorder ICD Code: F31.9 Assessment & Plan Estimated LOS: days patient mood is improving though his passivity and neediness continue. We'll have hospitalist consult with us. Will adjust Lamictal as mentioned above Justification for Cont. Inpt. At this time patient may decompensate if placed in a lower level of care Discharge Planning To be determined Problem Qualifiers (1) Bipolar disorder: Qualified Code: F31.32 - Bipolar affective disorder, currently depressed, moderate Ben Powers MD Jun 08, 2017 12:52
--- NOTE | 2017-06-08 16:29 | PD.CONS ---
HPI Service [facility] Consult Requested By Primary Care Physician Giovanny Cole M.D. 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 He was admitted last night via the emergency department with a diagnosis of bipolar disorder, depressed episode and benzodiazepine dependence. He was Gonzalez acted. Apparently the patient made several suicidal statements and was combative . His mother told 911 after she found him reportedly mumbling and flailing around the floor and started to hit his head. Today he is alert and oriented. He is calm and composed. He denies any specific complaints other than general concern about his general medical health. Review of Systems Other As detailed above, 10 systems reviewed and otherwise negative Past Family Social History Past Medical History Diabetes mellitus Hypertension Hyperlipidemia Prostate enlargement Fatty liver Proteinuria Elevated pancreatic enzymes Swollen ankles Past Surgical History Right shoulder replacement Reported Medications Reported Meds & Active Scripts Active Reported Ambien (Zolpidem Tartrate) 10 Mg Tab 10 Mg PO HS PRN Sonata (Zaleplon) 10 Mg Cap 10 Mg PO HS PRN Vesicare (Solifenacin) 10 Mg Tab 10 Mg PO HS Trulicity Inj (Dulaglutide Inj) 0.75 Mg/0.5 Ml Pen 0.75 Mg SQ Q7D Tamsulosin (Tamsulosin HCl) 0.4 Mg Cap 0.4 Mg PO HS Aldactone (Spironolactone) 25 Mg Tab 25 Mg PO DAILY Pravastatin 40 Mg Tab 40 Mg PO HS PRN Losartan-Hydrochlorothiazide 100-25 Mg Tab 1 Tab PO DAILY Escitalopram (Escitalopram Oxalate) 10 Mg Tab 10 Mg PO DAILY Diazepam 5 Mg Tab 5 Mg PO BID PRN Lexapro (Escitalopram Oxalate) 20 Mg Tab 40 Mg PO DAILY He also stated that he takes Glucophage, vitamin B 12 and vitamin D3 Allergies: Coded Allergies: lithium (Unverified Allergy, Severe, 06/07/17) grass pollen (Unverified Allergy, Intermediate, 06/07/17) Family History Reviewed but noncontributory Social History No smoking, no excessive alcohol, no illicit drug use, however he is a chronic user of benzodiazepines Physical Exam Vital Signs Vital Signs Date Time Temp Pulse Resp B/P Pulse Ox O2 Delivery O2 Flow Rate FiO2 06/08/17 05:06 97.4 55 16 106/66 97 Physical Exam GENERAL: This is a pleasant, overweight , well-developed patient, in no apparent distress. SKIN: No rashes, ecchymoses or lesions. Cool and dry. HEAD: Atraumatic. Normocephalic. No temporal or scalp tenderness. EYES: Pupils equal round and reactive. Extraocular motions intact. No scleral icterus. No injection or drainage. ENT: Nose without bleeding, purulent drainage or septal hematoma. Throat without erythema, tonsillar hypertrophy or exudate. Uvula midline. Airway patent. NECK: Trachea midline. No JVD or lymphadenopathy. Supple, nontender, no meningeal signs. CARDIOVASCULAR: Regular rate and rhythm without murmurs, gallops, or rubs. RESPIRATORY: Clear to auscultation. Breath sounds equal bilaterally. No wheezes , rales, or rhonchi. GASTROINTESTINAL: Abdomen soft, non-tender, nondistended. No hepato-splenomegaly , or palpable masses. No guarding. MUSCULOSKELETAL: Trace ankle swelling NEUROLOGICAL: Awake and alert. Normal speech. Result Diagram: 06/05/17 1112 A/P Assessment and Plan Assessment Psychiatric problem as detailed by psychiatry Metabolic acidosis on admission, etiology unclear, possibly renal Elevated creatinine on admission, improved subsequently Suspected chronic kidney disease, likely stage II Obesity History of diabetes, hypertension, hyperlipidemia, prostate enlargement, fatty liver, proteinuria, ankle swelling Management Continue home medications Accu-Cheks before meals and at bedtime Sliding-scale of insulin Discontinue Glucophage as his arrival creatinine was over 1.5 Psychiatric treatment per psychiatrist Thank you for allowing us to see this patient on consultation We will follow along with you during this hospitalization as needed discussed with patient Discussed with nurse Brisa Werner MD Jun 08, 2017 16:29
[2017-06-08] MEDS ORDERED: DEXTROSE 50% IN WATER 50 ML VIAL(D50) IV PRN (16:30)
[2017-06-08] MEDS ORDERED: GLUCAGON 1 MG/ML VIAL IM PRN (16:30)
[2017-06-08] MEDS ORDERED: GLUCAGON 1 MG/ML VIAL OTHER PRN (16:30)
[2017-06-08] MEDS: INSULIN ASPART SUPPLEMENTAL SCALE SQ SCH (21:00)
[2017-06-08] MEDS: lamoTRIgine 25 MG TAB PO SCH (21:38)
[2017-06-08] MEDS: TAMSULOSIN HCL 0.4 MG CAP PO SCH (21:39)
[2017-06-08] MEDS: TOLTERODINE TARTRATE 4 MG CAP LA PO SCH (21:39)
[2017-06-09 05:23] VITALS: BP 128/61; PULSE 62; RESP 16; TEMP 97.8; O2SAT 99
[2017-06-09] MEDS: clonazePAM 0.5 MG TAB PO SCH ×3 (06:23→21:37)
[2017-06-09] MEDS: INSULIN ASPART SUPPLEMENTAL SCALE SQ SCH ×4 (06:24→21:00)
[2017-06-09] MEDS: lamoTRIgine 100 MG TAB PO SCH (08:52)
[2017-06-09] MEDS: LOSARTAN 50 MG TAB PO SCH (08:52)
[2017-06-09] MEDS: ESCITALOPRAM OXALATE 10 MG TAB PO SCH (08:52)
[2017-06-09] MEDS: HYDROCHLOROTHIAZIDE 25 MG TAB PO SCH (08:52)
[2017-06-09] MEDS: SPIRONOLACTONE 25 MG TAB PO SCH (08:53)
--- NOTE | 2017-06-09 14:01 | HHI.PYPN ---
Subjective Remarks Patient seen in his room with floor staff. Chart reviewed. Patient compliant medications. Patient showing some slight increase in his affect, increase in his eye contact, more reactive, did show me a handwritten outline for structuring his responsibilities after discharge. He states his slept better last night. He denies suicidality homicidality voices or visions. There is still some mild intellectualization with them but overall things appear to be improving Review of Systems Except as stated in HPI: all other systems reviewed are Neg Objective Alert: Yes [place]: Person (ox4) Mood: Depressed Affect: Blunted Memory Intact: Comment (Not tested) Hallucinations: Other (deneis any) Delusions: No Delusion Type: Other (denies at this time) Suicidal: Ideation (deneis any) Homicidal: Ideation (deneis any) Insight/Judgment Poor to fair Labs Test 06/08/17 17:10 Random Glucose 105 MG/DL Vitals/IOs Vital Signs Date Time Temp Pulse Resp B/P Pulse Ox O2 Delivery O2 Flow Rate FiO2 06/09/17 05:23 97.8 62 16 128/61 99 Assessment & Plan Problem List: (1) Bipolar disorder ICD Code: F31.9 Assessment & Plan Estimated LOS: days patient somewhat calmer and more appropriate, some increase insight, compliant medications. For now continue treatment Justification for Cont. Inpt. At this time patient may decompensate if not placed in an appropriate level of care Discharge Planning To be determined Problem Qualifiers (1) Bipolar disorder: Qualified Code: F31.32 - Bipolar affective disorder, currently depressed, moderate Ben Powers MD Jun 09, 2017 14:01
[2017-06-09 18:08] VITALS: BP 118/73; PULSE 77; RESP 16; TEMP 98.6; O2SAT 95
[2017-06-09] MEDS: TAMSULOSIN HCL 0.4 MG CAP PO SCH (21:37)
[2017-06-09] MEDS: TOLTERODINE TARTRATE 4 MG CAP LA PO SCH (21:37)
[2017-06-09] MEDS: lamoTRIgine 25 MG TAB PO SCH (21:37)
[2017-06-10 04:56] VITALS: BP 146/67; PULSE 72; RESP 18; TEMP 97.9; O2SAT 97
[2017-06-10] MEDS: clonazePAM 0.5 MG TAB PO SCH ×3 (06:13→21:17)
[2017-06-10] MEDS: INSULIN ASPART SUPPLEMENTAL SCALE SQ SCH ×2 (06:51→11:09)
[2017-06-10] MEDS: SPIRONOLACTONE 25 MG TAB PO SCH (08:13)
[2017-06-10] MEDS: LOSARTAN 50 MG TAB PO SCH (08:13)
[2017-06-10] MEDS: lamoTRIgine 100 MG TAB PO SCH (08:13)
[2017-06-10] MEDS: HYDROCHLOROTHIAZIDE 25 MG TAB PO SCH (08:13)
[2017-06-10] MEDS: ESCITALOPRAM OXALATE 10 MG TAB PO SCH (08:14)
--- NOTE | 2017-06-10 09:19 | HHI.PYPN ---
Subjective Remarks Patient seen in [facility] with floor staff, chart review, patient compliant medication. Patient's affect continues to improve slowly he continues somewhat intellectualizing his behaviors. Though he denies suicidality homicidality voices or visions. He is planning on returning to home with his mother. Though he states he has not yet talked with her. I did suggest that he takes the weekend talked with his mother consider discharge with him on Tuesday Review of Systems Except as stated in HPI: all other systems reviewed are Neg Objective Alert: Yes [place]: Person (ox4) Mood: Depressed Affect: Blunted Memory Intact: Comment (Not tested) Hallucinations: Other (deneis any) Delusions: No Delusion Type: Other (denies at this time) Suicidal: Ideation (deneis any) Homicidal: Ideation (deneis any) Insight/Judgment Very poor Vitals/IOs Vital Signs Date Time Temp Pulse Resp B/P Pulse Ox O2 Delivery O2 Flow Rate FiO2 06/10/17 04:56 97.9 72 18 146/67 97 Intake and Output 06/09/17 06/09/17 06/10/17 08:00 16:00 00:00 Intake Total 360 ml Balance 360 ml Assessment & Plan Problem List: (1) Bipolar disorder ICD Code: F31.9 Assessment & Plan Estimated LOS: days patient continues calm cooperative with slight improvement in his affect. Compliant medications. Need him to talk to his mother to discuss discharge and return to the home Justification for Cont. Inpt. At this time patient may decompensate if not place to appropriate level of care Discharge Planning To be determined Problem Qualifiers (1) Bipolar disorder: Qualified Code: F31.32 - Bipolar affective disorder, currently depressed, moderate Ben Powers MD Jun 10, 2017 09:19
[2017-06-10 20:07] VITALS: BP 129/60; PULSE 72; RESP 17; TEMP 98; O2SAT 97
[2017-06-10] MEDS: lamoTRIgine 25 MG TAB PO SCH (21:00)
[2017-06-10] MEDS: TAMSULOSIN HCL 0.4 MG CAP PO SCH (21:17)
[2017-06-10] MEDS: TOLTERODINE TARTRATE 4 MG CAP LA PO SCH (21:17)
[2017-06-11 05:11] VITALS: BP 117/70; PULSE 60; RESP 17; TEMP 97.5; O2SAT 99
[2017-06-11] MEDS: clonazePAM 0.5 MG TAB PO SCH ×3 (06:24→22:10)
[2017-06-11] MEDS: INSULIN ASPART SUPPLEMENTAL SCALE SQ SCH (07:00)
[2017-06-11] MEDS: ESCITALOPRAM OXALATE 10 MG TAB PO SCH (08:35)
[2017-06-11] MEDS: HYDROCHLOROTHIAZIDE 25 MG TAB PO SCH (08:36)
[2017-06-11] MEDS: lamoTRIgine 100 MG TAB PO SCH (08:36)
[2017-06-11] MEDS: SPIRONOLACTONE 25 MG TAB PO SCH (08:36)
[2017-06-11] MEDS: LOSARTAN 50 MG TAB PO SCH (08:36)
--- NOTE | 2017-06-11 15:00 | HHI.PYPN ---
Subjective Remarks Patient was seen and case discussed with nursing. Patient is friendly and cooperative with interview. Insight is poor he denies suicidal ideation before admission. Today he feels "better." Is behaving well on the unit. Going to groups and is compliant with his medications. Eating and sleeping well. Denies suicidal or homicidal ideation intent or plan. Future goals include going to AA and getting back in his feet financially Objective Alert: Yes [place]: Person (ox4), Place, Date, Situation Mood: Calm Affect: Restricted Memory Intact: Comment (Not tested) Hallucinations: Other (deneis any) Delusions: No Delusion Type: Other (denies at this time) Suicidal: Ideation (deneis any) Homicidal: Ideation (deneis any) Insight/Judgment Poor Vitals/IOs Vital Signs Date Time Temp Pulse Resp B/P Pulse Ox O2 Delivery O2 Flow Rate FiO2 06/11/17 05:11 97.5 60 17 117/70 99 Assessment & Plan Problem List: (1) Bipolar disorder ICD Code: F31.9 Assessment & Plan Continue current treatment plan Justification for Cont. Inpt. Patient would decompensate in a less restrictive setting Problem Qualifiers (1) Bipolar disorder: Qualified Code: F31.32 - Bipolar affective disorder, currently depressed, moderate Dami Watson DO Jun 11, 2017 15:00
[2017-06-11 17:00] VITALS: BP 148/71; PULSE 69; RESP 17; TEMP 98.1; O2SAT 96
[2017-06-11] MEDS: TAMSULOSIN HCL 0.4 MG CAP PO SCH (22:10)
[2017-06-11] MEDS: TOLTERODINE TARTRATE 4 MG CAP LA PO SCH (22:10)
[2017-06-11] MEDS: lamoTRIgine 25 MG TAB PO SCH (22:11)
[2017-06-12] MEDS: INSULIN ASPART SUPPLEMENTAL SCALE SQ SCH (05:48)
[2017-06-12] MEDS: clonazePAM 0.5 MG TAB PO SCH ×3 (06:35→21:41)
[2017-06-12] MEDS: lamoTRIgine 100 MG TAB PO SCH (08:30)
[2017-06-12] MEDS: LOSARTAN 50 MG TAB PO SCH (08:30)
[2017-06-12] MEDS: ESCITALOPRAM OXALATE 10 MG TAB PO SCH (08:30)
[2017-06-12] MEDS: HYDROCHLOROTHIAZIDE 25 MG TAB PO SCH (08:30)
[2017-06-12] MEDS: SPIRONOLACTONE 25 MG TAB PO SCH (08:30)
--- NOTE | 2017-06-12 17:34 | HHI.PYPN ---
Subjective Remarks Patient was seen and case discussed with nursing. Patient is pleasant and cooperative with exam. Patient says the Klonopin is making him tired. Psychoeducation was done that patient could skip a dose if he is feeling sedated given its long half-life. Behaving well on the unit. Compliant with medications. Mood is improving. Eating and sleeping well. Denies suicidal ideation intent or plan Objective Alert: Yes [place]: Person (ox4), Place, Date, Situation Mood: Calm Affect: Restricted Memory Intact: Comment (Not tested) Hallucinations: Other (deneis any) Delusions: No Delusion Type: Other (denies at this time) Suicidal: Ideation (deneis any) Homicidal: Ideation (deneis any) Insight/Judgment Improving Vitals/IOs Vital Signs Date Time Temp Pulse Resp B/P (MAP) Pulse Ox O2 Delivery O2 Flow Rate FiO2 06/11/17 17:00 98.1 69 17 148/71 (96) 96 Assessment & Plan Problem List: (1) Bipolar disorder ICD Codes: F31.9 - Bipolar disorder, unspecified Status: Acute Assessment & Plan Continue current treatment plan Justification for Cont. Inpt. Patient would decompensate in a less restrictive setting Problem Qualifiers (1) Bipolar disorder: Dami Watson DO Jun 12, 2017 17:34
[2017-06-12 18:05] VITALS: BP 132/84; PULSE 89; RESP 18; TEMP 98.5; O2SAT 97
[2017-06-12] MEDS: TOLTERODINE TARTRATE 4 MG CAP LA PO SCH (21:41)
[2017-06-12] MEDS: TAMSULOSIN HCL 0.4 MG CAP PO SCH (21:41)
[2017-06-12] MEDS: lamoTRIgine 25 MG TAB PO SCH (21:41)
[2017-06-13 05:58] VITALS: BP 115/61; PULSE 61; RESP 17; TEMP 97.6; O2SAT 100
[2017-06-13] MEDS: clonazePAM 0.5 MG TAB PO SCH ×3 (06:03→21:29)
[2017-06-13] MEDS: INSULIN ASPART SUPPLEMENTAL SCALE SQ SCH (06:20)
[2017-06-13] MEDS: HYDROCHLOROTHIAZIDE 25 MG TAB PO SCH (09:07)
[2017-06-13] MEDS: lamoTRIgine 100 MG TAB PO SCH (09:08)
[2017-06-13] MEDS: SPIRONOLACTONE 25 MG TAB PO SCH (09:08)
[2017-06-13] MEDS: ESCITALOPRAM OXALATE 10 MG TAB PO SCH (09:08)
[2017-06-13] MEDS: LOSARTAN 50 MG TAB PO SCH (09:08)
--- NOTE | 2017-06-13 16:14 | HHI.PYPN ---
Subjective Remarks Patient seen in day room with nurse Anita. Patient's mood continues to show stability with good affect and good eye contact. He states she's had a good conversation with his mother. Now feels she is able to return home. Will discharge patient tomorrow home Review of Systems Except as stated in HPI: all other systems reviewed are Neg Objective Alert: Yes [place]: Person (ox4), Place, Date, Situation Mood: Calm Affect: Restricted Memory Intact: Comment (Not tested) Hallucinations: Other (deneis any) Delusions: No Delusion Type: Other (denies at this time) Suicidal: Ideation (deneis any) Homicidal: Ideation (deneis any) Insight/Judgment Poor Vitals/IOs Vital Signs Date Time Temp Pulse Resp B/P (MAP) Pulse Ox O2 Delivery O2 Flow Rate FiO2 06/13/17 05:58 97.6 61 17 115/61 (79) 100 Assessment & Plan Problem List: (1) Bipolar disorder current episode depressed ICD Codes: F31.30 - Bipolar disorder, current episode depressed, mild or moderate severity, unspecified Status: Acute Assessment & Plan Estimated LOS: days patient mood is improving, he denies suicidality voices or visions. Consider discharge tomorrow Justification for Cont. Inpt. See above Problem Qualifiers (1) Bipolar disorder current episode depressed: Ben Powers MD Jun 13, 2017 16:14
[2017-06-13 19:43] VITALS: BP 126/75; PULSE 73; RESP 18; TEMP 98.5; O2SAT 98
[2017-06-13] MEDS: lamoTRIgine 25 MG TAB PO SCH (21:29)
[2017-06-13] MEDS: TOLTERODINE TARTRATE 4 MG CAP LA PO SCH (21:29)
[2017-06-13] MEDS: TAMSULOSIN HCL 0.4 MG CAP PO SCH (21:29)
[2017-06-14 05:46] VITALS: BP 126/70; PULSE 70; RESP 18; TEMP 97.7; O2SAT 99
[2017-06-14] MEDS: clonazePAM 0.5 MG TAB PO SCH ×2 (06:11→14:00)
[2017-06-14] MEDS: INSULIN ASPART SUPPLEMENTAL SCALE SQ SCH (06:13)
[2017-06-14] MEDS: lamoTRIgine 100 MG TAB PO SCH (09:09)
[2017-06-14] MEDS: SPIRONOLACTONE 25 MG TAB PO SCH (09:09)
[2017-06-14] MEDS: HYDROCHLOROTHIAZIDE 25 MG TAB PO SCH (09:09)
[2017-06-14] MEDS: ESCITALOPRAM OXALATE 10 MG TAB PO SCH (09:10)
[2017-06-14] MEDS: LOSARTAN 50 MG TAB PO SCH (09:10)
[2017-06-14] MEDS ORDERED: LAMO100 PO (14:16)
[2017-06-14] MEDS ORDERED: HYDR25TA5 PO (14:16)
[2017-06-14] MEDS ORDERED: CLON.5 PO (14:16)
[2017-06-14] MEDS ORDERED: TAMS5CAP PO (14:16)
[2017-06-14] MEDS ORDERED: COZA50TA PO (14:16)
[2017-06-14] MEDS ORDERED: LAMO25 PO (14:16)
[2017-06-14] MEDS ORDERED: DETR4CAP PO (14:16)
[2017-06-14] MEDS ORDERED: SPIR25 PO (14:16)
[2017-06-14] MEDS ORDERED: ESCI10TA PO (14:16)
--- NOTE | 2017-06-14 14:25 | HHI.DS ---
Psychiatry Discharge Summary Inpatient Psychiatric care?: Yes Advance Directive: No Reason Not Provided: does not have Mental Health AdvanceDirective: No Health Care Proxy: No Admission Admission Date Jun 04, 2017 at 10:48 Admission Diagnosis: (1) Bipolar disorder current episode depressed ICD Code: F31.30 - Bipolar disorder, current episode depressed, mild or moderate severity, unspecified Brief History As per Ms. Kathryn Cortez documentation "66-year-old male with history of bipolar disorder and anxiety who presents to the ER brought in by EMS under a Gonzalez Act. The BA alleges that the patient made several suicidal statements and that he was combative during a "psychotic episode". EMS were called to the patient's home by his mother after " he started to mumble and flail around on the floor and started to hit his head" . Earlier in the day he had seen his psychologist , Dr. Stanford who had recommended that the patient see another psychiatrist instead of seeing Dr. Anderson but failed to give him a referral. He required 6 mg of Ativan en route to hospital secondary to his agitated state. He reported to ED provider that he has been feeling "very hyperactive in the last few days and just cannot get himself to calm down.". Patient was monitored in J pod and he presented no agitation. EMR is reviewed. One previous contact with [facility] psychiatry department in 2009 when he presented to the ED with complaints of anxiety. Patient is seen with nurse Glass. He is awake, alert and oriented. Flat affect. Speech is delayed. When he does answer he is tangential with difficulty focusing and concentration. He reports that he is having trouble with his thoughts " too many thoughts and off track" . He denies hallucinations. Denies suicidal or homicidal ideation. Mood is depressed. Reports impaired sleep with current medications which include Sonata and Ambien . 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 Telephone call to his mother, Carmen Meyer at [phone]. 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 Motta, he also sees a psychologist for psychotherapy, he is on Lamictal 150 mg twice a day, Lexapro 10 mg, Sonata 10 mg, Ambien 5 mg, Valium 5 mg twice a day, medical history of diabetes mellitus type 2, who was brought to the hospital under Gonzalez act due to suicidal ideation and disorganized behavior. Patient is seen today for psychiatric evaluation in the 2600 unit with director social service Aurelia. Patient is calm and cooperative. Patient explains that he cannot fully understand the reason he in the hospital. Says that he doesn't usually acts like this, but apparently he has been having some disputes and disagreement with his psychologist regarding his medication management by Dr. Julian. Patient says that he admits that he has been abusing benzodiazepines and he is willing to participate in a medication adjustment. The moment of this evaluation patient denies prominent depressive symptoms, he reports decreased sleep and energy, but denies anhedonia, denies hopelessness, denies helplessness, denies worthlessness, denies suicidal or homicidal ideation, denies visual and auditory hallucinations. She does not seem to have an insight about his episode of psychosis and aggressive behavior in the unit. At this moment he is oriented 3, no attention deficit, no fluctuation of consciousness. Patient denies the use of drugs and alcohol. Tobacco Use In Past 30 Days: No Tobacco Past 30 Days Alcohol Use: Monthly or Less Hospital Course Patient's initial depression suicidality isolation with significant anhedonic features slowly improved with his medication, his increase cooperation and participation in groups and overall trust of alliance with the staff. He showed increased energy increased affect started making plans to help improve himself after discharge. He denies suicidality homicidality voices or visions. He has had good communication with his mother. She is excited about him coming home also thus patient will be discharged today follow-up with . Dr. Desmond Motta for mental health services and also follow-up with private therapist in the community. He'll be given 1 month Rx Results Blood Pressure 126 / 70 Vital Signs Date Time Temp Pulse Resp B/P (MAP) Pulse Ox O2 Delivery O2 Flow Rate FiO2 06/14/17 05:46 97.7 70 18 126/70 (88) 99 Laboratory Results Test 06/05/17 11:12 Cholesterol Level 147 MG/DL (120-200) HDL Cholesterol 36.5 MG/DL (40.0-60.0) Hemoglobin A1c 6.4 % (4.3-6.0) LDL Cholesterol 80 MG/DL (0-99) Triglycerides Level 151 MG/DL (42-150) Summary of Procedures None done Pending results at discharge: No Medications # of Antipsychotic meds at D/C: 0 Approp Antipsych med options 1 - Minimum of three failed multiple trials of monotherapy. 2 - Documented plan to taper to monotherapy due to previous use of multiple meds OR cross-taper in progress at D/C. 3 - Documentation of augmentation of Clozapine. 4 - Justification other than those listed in allowable values 1-3, document here : Discharge Discharge Date: Jun 14, 2017 Discharge Diagnosis: (1) Bipolar disorder current episode depressed Diagnosis: Principal ICD Code: F31.30 - Bipolar disorder, current episode depressed, mild or moderate severity, unspecified Status: Acute Mental Status Exam at Disch Alert oriented white male calm cooperative. He is normoactive. His mood is euthymic slight decreased range intensity of his affect. Speech rate and rhythm within normal limits though no formal thought disorders. No auditory or visual hallucinations though delusions. Insight and judgment is fair. Cognition grossly intact Pt Condition on Discharge: Stable Discharge Disposition: Discharge Home Discharge Instructions Diet Instructions: As Tolerated, No Restrictions Activities you can perform: Regular-No Restrictions Scheduled Appointment: Private Psychiatrist Appointment Date: Jun 15, 2017 Appointment Time: 420 Discharge Time > 30 minutes Discharge/Advance Care Plan Health Problems: (1) Bipolar disorder current episode depressed Goals to promote your health * To prevent worsening of your condition and complications * To maintain your health at the optimal level Directions to meet your goals Take your medications as prescribed Follow your dietary instruction Follow activity as directed Keep your appointments as scheduled Take your immunizations and boosters as scheduled If your symptoms worsen call your PCP, if no PCP go to Urgent Care Center or Emergency Room For 16/05 questions related to your inpatient stay or results of tests pending at discharge, please contact Dr. Ben Powers at Smoking is Dangerous to Your Health. Avoid second hand smoking Problem Qualifiers (1) Bipolar disorder current episode depressed: Ben Powers MD Jun 14, 2017 14:25
== END 2017-06-14 17:35 | disposition home or self-care (01) | DRG 885 ==
LOC: NEPC 09:29 → NEDA 06-04 10:48 → H260 06-04 12:15
PROVIDERS: ADMIT Psychiatry & Neurology Psychiatry; ATTEND Psychiatry & Neurology Psychiatry
DX: F31.31 Bipolar disorder, current episode depressed, mild (principal); E87.2 Acidosis; R45.851 Suicidal ideations; K76.0 Fatty (change of) liver, not elsewhere classified; F13.20 Sedative, hypnotic or anxiolytic dependence, uncomplicated; I10 Essential (primary) hypertension; E11.9 Type 2 diabetes mellitus without complications; Z79.84 Long term (current) use of oral hypoglycemic drugs; E78.5 Hyperlipidemia, unspecified; N40.0 Benign prostatic hyperplasia without lower urinary tract symptoms; E66.9 Obesity, unspecified; Z68.30 Body mass index [BMI] 30.0-30.9, adult
CPT/HCPCS: 80048; 80053; 80061; 80307; 82947; 82948; 83036; 85025; 96360; 96361; J1815; J7030